=== PATIENT | male | born 1980 | race Caucasian/White ===

== ENCOUNTER 2017-03-21 21:34 | Emergency (ER) | payer BC ==
[2017-03-21] MEDS ORDERED: Amoxicillin PO (*) 500 MG CAP PO ONE (21:52)
--- NOTE | 2017-03-21 21:52 | UC ---
Throat Pain/Nasal Matias HPI - HPI Summary HPI Summary: Pt c/o left side lower jaw pain, sudden onset of nasal congestion and sinus pressure X 1 day that has since resolved, sore throat that occurs only in the morning and improves during the day. - History of Current Complaint Chief Complaint: UCGeneralIllness Stated Complaint: SINUS Time Seen by Provider: 03/21/17 21:39 Hx Obtained From: Patient Onset/Duration: Gradual Onset - left lower jaw pain Severity: Mild Associated Signs & Symptoms: Positive: Other - left lower jaw discomfort - Epiglottits Risk Factors Epiglottis Risk Factors: Negative - Allergies/Home Medications Allergies/Adverse Reactions: Allergies Allergy/AdvReac Type Severity Reaction Status Date / Time No Known Allergies Allergy Verified 03/21/17 21:38 Home Medications: Home Medications Ibuprofen TAB* [Advil TAB*] 800 mg PO Q8H PRN 03/21/17 [History Confirmed ] guaiFENesin ER TAB [Mucinex*] 600 mg PO BID PRN 03/21/17 [History Confirmed 04/27] PMH/Surg Hx/FS Hx/Imm Hx Previously Healthy: Yes - Surgical History Surgical History: None - Family History Known Family History: Positive: Cardiac Disease - Social History Occupation: Employed Part-time Lives: With Family Alcohol Use: None Substance Use Type: None Smoking Status (MU): Never Smoked Tobacco Have You Smoked in the Last Year: No - Immunization History Most Recent Influenza Vaccination: none Review of Systems Constitutional: Chills Skin: Negative Eyes: Negative ENT: Dental Pain, Sore Throat, Sinus Congestion Respiratory: Negative Cardiovascular: Negative Gastrointestinal: Negative Genitourinary: Negative Motor: Negative Neurovascular: Negative Musculoskeletal: Negative Neurological: Negative Psychological: Negative Is Patient Immunocompromised?: No All Other Systems Reviewed And Are Negative: Yes Physical Exam Triage Information Reviewed: Yes Appearance: Well-Appearing Vital Signs: Initial Vital Signs Temp 97.8 F 03/21/17 21:39 Pulse 78 03/21/17 21:39 Resp 12 03/21/17 21:39 BP 141/86 03/21/17 21:39 Pulse Ox 100 03/21/17 21:39 Vital Signs Reviewed: Yes Eye Exam: Normal ENT: Positive: Other: - PND Dental: Positive: Gross Decay/Caries @, Dental Fracture @ - left lower last two molars,, Abscess @ - left lower jaw last two molar, tenderness, along lower left jaw with examination Neck exam: Other Neck: Positive: Tenderness @ - left lower jaw, submandibular lymph node Respiratory Exam: Normal Cardiovascular Exam: Normal Musculoskeletal Exam: Normal Neurological Exam: Normal Psychological Exam: Normal Skin Exam: Normal Throat Pain/Nasal Course/Dx - Course Course Of Treatment: I discussed the need to follow up with a [facility] care provider regarding his fractured teeth and development of dental abscess. Pt verbalized understanding and agreed to plan of care. - Differential Dx/Diagnosis Differential Diagnosis/HQI/PQRI: URI Provider Diagnoses: dental abscess. Poor dentition Discharge - Discharge Plan Condition: Stable Disposition: HOME Prescriptions: Amoxicillin PO (*) [Amoxicillin 500 MG CAP*] 500 mg PO Q12H #20 cap Patient Education Materials: Dental Abscess (ED) Referrals: [facility] [Outside] No Primary Care Phys,NOPCP [Primary Care Provider] - Additional Instructions: Please follow up wit oru dental care provider as soon as possible.
[2017-03-21 21:57] VITALS: BP 141/86
== END 2017-03-21 21:58 | disposition home or self-care (01) ==
LOC: UCCORT 21:34
DX: K04.7 Periapical abscess without sinus (principal); K02.9 Dental caries, unspecified
CPT/HCPCS: 99212; A9270-GY; G0463

== ENCOUNTER 2017-07-23 12:21 | Emergency (ER) | payer BC ==
[2017-07-23 14:20] VITALS: BP 125/74
[2017-07-23] MEDS ORDERED: Tetracaine 0.5% OPTH.SOL 4 ML* 1 DROP BTL BOTH EYES ONE (14:47)
--- NOTE | 2017-07-23 14:47 | UC ---
Eye Complaint HPI - HPI Summary HPI Summary: 37 YO MALE WITH BILAT FB SENSATIONS R EYE >L EYE TEARING PHOTOPHOBIC HE HAD BEEN WORKING UNDER HIS TRUCK - History of Current Complaint Chief Complaint: UCEye Stated Complaint: EYE COMPLAINT Time Seen by Provider: 07/23/17 14:40 Hx Obtained From: Patient Onset/Duration: Sudden Onset, Lasting Days Timing: Constant Severity Initially: Moderate Severity Currently: Moderate Pain Intensity: 7 Pain Scale Used: 0-10 Numeric Character: Foreign Body Sensation Aggravating Factor(s): Light Alleviating Factor(s): Darkness Associated Signs And Symptoms: Positive: Drainage (Clear) Eyes: 1 - FB 2 - FB - Risk Factors Penetrating Injury Risk Factor: Negative Globe Rupture Risk Factors: Negative Acute Glaucoma Risk Factors: Negative Optic Artery Occlusion Risk Factors: Negative - Allergies/Home Medications Allergies/Adverse Reactions: Allergies Allergy/AdvReac Type Severity Reaction Status Date / Time No Known Allergies Allergy Verified 07/23/17 14:20 PMH/Surg Hx/FS Hx/Imm Hx Previously Healthy: Yes - Surgical History Surgical History: None - Family History Known Family History: Positive: Cardiac Disease, Hypertension - Social History Alcohol Use: None Substance Use Type: None Smoking Status (MU): Never Smoked Tobacco Have You Smoked in the Last Year: No - Immunization History Most Recent Influenza Vaccination: none Review of Systems Constitutional: Negative Skin: Negative Eyes: Photophobia ENT: Negative Respiratory: Negative Cardiovascular: Negative Gastrointestinal: Negative Genitourinary: Negative Motor: Negative Neurovascular: Negative Musculoskeletal: Negative Neurological: Negative Psychological: Negative Is Patient Immunocompromised?: No All Other Systems Reviewed And Are Negative: Yes Physical Exam Triage Information Reviewed: Yes Appearance: Well-Appearing, No Pain Distress, Well-Nourished Vital Signs: Initial Vital Signs Temp 97.7 F 07/23/17 14:16 Pulse 77 07/23/17 14:16 Resp 14 07/23/17 14:16 BP 125/74 07/23/17 14:16 Pulse Ox 100 07/23/17 14:16 Vital Signs Reviewed: Yes Eyes: Positive: Other: - BILAT CORNEAL FBs ENT: Positive: Hearing grossly normal, Nasal drainage Neck: Positive: Supple Respiratory: Positive: Lungs clear, Normal breath sounds, No respiratory distress, No accessory muscle use Cardiovascular: Positive: RRR, No Murmur Musculoskeletal: Positive: ROM Intact, No Edema Neurological: Positive: Alert Psychological Exam: Normal Skin Exam: Normal Procedures - Eye Procedure Alcaine Drops Administered: Yes - TETRACAINE DROPS 2 EACH EYE Eye FB Removal: removal w/ cotton swab - RIGHT AND LEFT EYE, other - LARGE RUST RING RIGHT EYE Eye Complaint Course/Dx - Differential Dx/Diagnosis Provider Diagnoses: CORNEAL FOREIGN BODIES REMOVED (RIGHT AND LEFT EYE) Discharge - Discharge Plan Condition: Stable Disposition: HOME Prescriptions: Polymyx/Trimethoprim OPTH* [Polytrim OPHTH*] 1 - 2 drop BOTH EYES QID #1 btl Patient Education Materials: Eye Foreign Body (ED) Referrals: Luis Fernando Gallo MD [Medical Doctor] - If Needed Ladi Dangelo MD [Medical Doctor] - If Needed Additional Instructions: you should be much better in 24 hours if not better return for recheck you have a large rust ring on your right cornea I suggest you see an entry specialist to have it removed
[2017-07-23] MEDS ORDERED: Tetracaine 0.5% OPTH.SOL 4 ML* 1 DROP BTL ONE (14:49)
== END 2017-07-23 15:09 | disposition home or self-care (01) ==
LOC: UCCORT 12:21
DX: T15.02XA Foreign body in cornea, left eye, initial encounter (principal); T15.01XA Foreign body in cornea, right eye, initial encounter; X58.XXXA Exposure to other specified factors, initial encounter; Y93.89 Activity, other specified; Y92.9 Unspecified place or not applicable
CPT/HCPCS: 65220; 99212; A9270-GY; G0463

== ENCOUNTER 2017-11-27 20:39 | Emergency (ER) | payer BC ==
[2017-11-27 21:45] VITALS: BP 116/72
[2017-11-27] MEDS ORDERED: Tetracaine 0.5% OPTH.SOL 4 ML* 1 DROP BTL LEFT EYE ONE (21:59)
[2017-11-27] MEDS ORDERED: Fluorescein Sod TOPICAL 0.6* 0.6 MG TEST OPHTHALMIC ONE ×2 (22:01→22:03)
--- NOTE | 2017-11-27 22:02 | UC ---
Eye Complaint HPI - HPI Summary HPI Summary: 37 y/o male presents to the urgent care c/o foreign body in his left eye s/p working on his truck last night. Pt thinks a metal piece felt on his left eye, he removed some of it by flushing his eye w/ water. Pt states he feels a foreign body sensation w/ burning sensation and red eye. He has been scratching his eye. Pt states mild photophobia w/ clear eye discharge. Pt denies fever, Adams , eye pain, dizziness, visual disturbances, SOB, chest pain, abdominal pain, N/V /D. - History of Current Complaint Chief Complaint: UCEye Stated Complaint: LEFT EYE COMPLAINT Time Seen by Provider: 11/27/17 21:49 Hx Obtained From: Patient Onset/Duration: Sudden Onset, Lasting Days - 1 days, Still Present Timing: Constant Severity Initially: Mild Severity Currently: Mild Pain Intensity: 2 Pain Scale Used: 0-10 Numeric Location of Injury: Other - left cornea Character: Foreign Body Sensation Aggravating Factor(s): Blinking Alleviating Factor(s): Nothing Associated Signs And Symptoms: Positive: Photophobia, Drainage (Clear). Negative: Drainage (Purulent), Vision Impairment Bilateral, Vision Impairment Right, Vision Impairment Left, Fever, Swelling - Risk Factors Penetrating Injury Risk Factor: Negative Globe Rupture Risk Factors: Negative Acute Glaucoma Risk Factors: Negative Optic Artery Occlusion Risk Factors: Negative - Allergies/Home Medications Allergies/Adverse Reactions: Allergies Allergy/AdvReac Type Severity Reaction Status Date / Time No Known Allergies Allergy Verified 07/23/17 14:20 Home Medications: Home Medications Ibuprofen TAB* [Advil TAB*] 800 mg PO Q6H PRN 11/27/17 [History Confirmed ] PMH/Surg Hx/FS Hx/Imm Hx Previously Healthy: Yes - Pt denies PMHX - Surgical History Surgical History: None - Family History Known Family History: Positive: Cardiac Disease, Hypertension, Diabetes - Social History Occupation: Employed Full-time Lives: With Family Alcohol Use: None Substance Use Type: None Smoking Status (MU): Never Smoked Tobacco Have You Smoked in the Last Year: No - Immunization History Most Recent Influenza Vaccination: none Most Recent Tetanus Shot: WITHIN PAST 2 YRS PER PT. Review of Systems Constitutional: Negative Skin: Negative Eyes: Eye Redness - left eye and clear discharge ENT: Negative Respiratory: Negative Cardiovascular: Negative Gastrointestinal: Negative Genitourinary: Negative Motor: Negative Neurovascular: Negative Musculoskeletal: Negative Neurological: Negative Psychological: Negative Is Patient Immunocompromised?: No All Other Systems Reviewed And Are Negative: Yes Physical Exam - Summary Physical Exam Summary: Vital Signs Reviewed: Yes General: Well appearing, well nourished male in no apparent pain distress Eyes: Positive: B/L Conjunctiva clear- Visual acuity: WNL,Visual staley: full to confrontation. No periorbital soft tissue swelling B/L.No tender to palpation. PERRLA, EOMI intact w/out limitation or complaint of pain. eyelashes clear. mild tearing and clear drainage observed. Black point observed embedded on the LF cornea around 7 o'clock w/ naked eye.No ciliary flush. No chemosis, No photophobia. Normal fundoscopic exam; no proptosis, exophthalmos, nystagmus. ENT: Positive: Normal ENT inspection, Hearing grossly normal, Pharynx normal, Nasal congestion, Nasal drainage - clear, TMs normal - B/L external ear canal clear , TM's WNL. Negative: Tonsillar swelling, Tonsillar exudate Neck: Positive: Supple, Nontender, No Lymphadenopathy Respiratory: Positive: Chest nontender, Lungs clear, Normal breath sounds, No respiratory distress Cardiovascular: Positive: RRR, No Murmur, Pulses Normal, Brisk Capillary Refill Abdomen Description: Positive: Nontender, No Organomegaly, Soft. Negative: CVA Tenderness (R), CVA Tenderness (L) Bowel Sounds: Positive: Present Musculoskeletal: Positive: Strength Intact, ROM Intact, No Edema Neurological Exam: Normal Psychological Exam: Normal Skin Exam: Normal Triage Information Reviewed: Yes Vital Signs: Initial Vital Signs Temp 98.4 F 11/27/17 21:41 Pulse 76 11/27/17 21:41 Resp 18 11/27/17 21:41 BP 116/72 11/27/17 21:41 Pulse Ox 99 11/27/17 21:41 Eye Complaint Course/Dx - Course Course Of Treatment: 37 y/o male presents to the urgent care c/o foreign body in his left eye s/p working on his truck last night. Pt thinks a metal piece felt on his left eye, he removed some of it by flushing his eye w/ water. Pt states he feels a foreign body sensation w/ burning sensation and red eye. He has been scratching his eye. Pt states mild photophobia w/ clear eye discharge. Pt denies fever, Adams, eye pain, dizziness, visual disturbances, SOB, chest pain , abdominal pain, N/V/D. Hx obtained. Pt w/ a black point observed embedded on the LF cornea around 7 o'clock w/ naked eye on examination. EYE PROCEDURE to remove foreign body:Topical anesthetic was instilled with good anesthesia using 1 gtt of Tettracaine ophth anesthetic agent. Fluorescein stain of the L eye was performed w uptake of dye. FB detected at 7 o'clock of cornea. FB removed w/ a sterile Q-tip and corneal abrassion observed. Upper lid was everted and no FB or lesions were noted. Anterior chamber is clear w/out cells or flare. Normal saline irrigation/eye wash solutions was performed and the pt tolerated the procedure well, no adverse reaction or complication. After procedure Pt felt better. Pt Rx Erythromycin ophthalmic ointment, first dose given at the clinic and advised to f/u w/ DR Dangelo belly dancer in 1-2 days for furtehr evaluation on his Corneal abrasion. Pt understood and agreed w/ plan of care - Differential Dx/Diagnosis Differential Diagnosis/HQI/PQRI: Conjunctivitis, Corneal Abrasion, Foreign Body , Periorbital Cellulitis Provider Diagnoses: 1- left eye foreign body removal. 2-left corneal abrasion Discharge - Sign-Out/Discharge Documenting (check all that apply): Discharge/Admit/Transfer - D/C home - Discharge Plan Condition: Stable Disposition: HOME Prescriptions: Erythromycin TOPICAL GEL* [Erythromycin OPTH OINT*] 1 applic TOPICAL TID #1 oint Patient Education Materials: Corneal Abrasion (DC), Eye Foreign Body (ED) Referrals: [facility] [[facility]] - If Needed Ladi Dangelo MD [Medical Doctor] - 2 Days Additional Instructions: 1-Please apply ophthalmic ointm as instructed and finish the full course of treatment to avoid recurrent infection. 2-Please f/u w/ Electronic Prepress System Operator DR Dangelo in 2 days for further check up and treatment on your corneal abrasion. - Billing Disposition and Condition Condition: STABLE Disposition: HOME
[2017-11-27] MEDS ORDERED: Erythromycin OPTH OINT* APPLIC OINT LEFT EYE ONE (22:13)
== END 2017-11-27 22:25 | disposition home or self-care (01) ==
LOC: UCCORT 20:39
DX: T15.02XA Foreign body in cornea, left eye, initial encounter (principal); S00.252A Superficial foreign body of left eyelid and periocular area, initial encounter; X58.XXXA Exposure to other specified factors, initial encounter; Y93.89 Activity, other specified; Y92.9 Unspecified place or not applicable
CPT/HCPCS: 99213; A9270-GY; G0463

== ENCOUNTER 2018-01-16 15:34 | Emergency (ER) | payer BC ==
[2018-01-16 15:56] VITALS: BP 123/75
--- NOTE | 2018-01-16 16:11 | UC ---
Throat Pain/Nasal Matias HPI - HPI Summary HPI Summary: itchy rash both axilla spreading down ribs mid axilla area, also has left upper dental pain and swelling - History of Current Complaint Chief Complaint: UCRespiratory Stated Complaint: SINUS Time Seen by Provider: 01/16/18 16:08 Hx Obtained From: Patient Onset/Duration: Gradual Onset, Lasting Weeks Pain Intensity: 7 Pain Scale Used: 0-10 Numeric Cough: None - Allergies/Home Medications Allergies/Adverse Reactions: Allergies Allergy/AdvReac Type Severity Reaction Status Date / Time No Known Allergies Allergy Verified 01/16/18 15:48 PMH/Surg Hx/FS Hx/Imm Hx Previously Healthy: Yes - Surgical History Surgical History: None - Family History Known Family History: Positive: None, Cardiac Disease, Hypertension, Diabetes - Social History Occupation: Employed Full-time Lives: With Family Alcohol Use: None Substance Use Type: None Smoking Status (MU): Never Smoked Tobacco Have You Smoked in the Last Year: No - Immunization History Most Recent Influenza Vaccination: none Most Recent Tetanus Shot: WITHIN PAST 2 YRS PER PT. Review of Systems Constitutional: Negative Skin: Rash - itchy dry rash both axilla and mid axillary area on chest wall Eyes: Negative ENT: Dental Pain - left upper, Sinus Pain/Tenderness - left maxillary Respiratory: Negative Cardiovascular: Negative Gastrointestinal: Negative Genitourinary: Negative Motor: Negative Neurovascular: Negative Musculoskeletal: Negative Neurological: Negative Psychological: Negative Is Patient Immunocompromised?: No All Other Systems Reviewed And Are Negative: Yes Physical Exam Triage Information Reviewed: Yes Appearance: Well-Appearing, No Pain Distress, Well-Nourished Vital Signs: Initial Vital Signs Temp 97.7 F 01/16/18 15:49 Pulse 59 01/16/18 15:49 Resp 16 01/16/18 15:49 BP 123/75 01/16/18 15:49 Pulse Ox 100 01/16/18 15:49 Vital Signs Reviewed: Yes Eye Exam: Normal Eyes: Positive: Conjunctiva Clear ENT Exam: Normal ENT: Positive: Normal ENT inspection, Hearing grossly normal, Pharynx normal, Nasal congestion, TMs normal, Dental tenderness, Sinus tenderness, Uvula midline. Negative: Tonsillar swelling, Trismus, Muffled voice, Hoarse voice Dental Exam: Other Dental: Positive: Percussion Tenderness @ - left upper, Gross Decay/Caries @ - left upper Neck exam: Normal Neck: Positive: Supple, Nontender, No Lymphadenopathy Respiratory Exam: Normal Respiratory: Positive: Chest non-tender, No respiratory distress, No accessory muscle use Cardiovascular Exam: Normal Cardiovascular: Positive: RRR, Pulses Normal, Brisk Capillary Refill Musculoskeletal Exam: Normal Musculoskeletal: Positive: Strength Intact, ROM Intact, No Edema Neurological Exam: Normal Neurological: Positive: Alert, Muscle Tone Normal Psychological Exam: Normal Skin Exam: Normal Throat Pain/Nasal Course/Dx - Course Assessment/Plan: lotrisone for fungal rash on chest wall, augmentin for dental infection tylenol ibuprofen for pain follow with pcp prn - Differential Dx/Diagnosis Provider Diagnoses: tinea rash on chest, dental pain/abscess-left upper jaw Discharge - Sign-Out/Discharge Documenting (check all that apply): Discharge/Admit/Transfer - Discharge Plan Condition: Stable Disposition: HOME Prescriptions: Amoxicillin/Clavulanate TAB* [Augmentin TAB 875*] 875 mg PO BID #20 tab Clotrimazole/Betamethasone* [Lotrisone Cream*] 1 applic TOPICAL BID #45 gm Patient Education Materials: Sinusitis (ED), Skin Yeast Infection (ED) Referrals: Chu Roland, LEAD ASSISTANT MANAGER [Primary Care Provider] - If Needed - Billing Disposition and Condition Condition: STABLE Disposition: Home
== END 2018-01-16 16:40 | disposition home or self-care (01) ==
LOC: UCCORT 15:34
DX: B35.9 Dermatophytosis, unspecified (principal); K08.89 Other specified disorders of teeth and supporting structures; M27.2 Inflammatory conditions of jaws
CPT/HCPCS: 99212; G0463

== ENCOUNTER 2018-07-06 17:17 | Emergency (ER) | payer BC ==
[2018-07-06 19:18] VITALS: BP 141/80
--- NOTE | 2018-07-06 19:32 | UC ---
Throat Pain/Nasal Matias HPI - HPI Summary HPI Summary: Patient presents to urgent care reporting 5 days progressive sinus congestion, ear pain, postnasal drip, sore throat. Patient reports tactile temperatures but has not checked his fever. Patient's been taking Mucinex without report. Patient states he's got some facial discomfort improvement a shower. Mild intermittent cough is nonproductive. Patient without any rashes. Patient works in construction. Patient's medications reviewed this visit. Patient is not immunocompromised. - History of Current Complaint Chief Complaint: UCGeneralIllness Stated Complaint: SINUSES Time Seen by Provider: 07/06/18 19:23 Hx Obtained From: Patient, Family/Backend Java Developer Onset/Duration: Gradual Onset Severity: Moderate Pain Intensity: 6 Pain Scale Used: 0-10 Numeric - Allergies/Home Medications Allergies/Adverse Reactions: Allergies Allergy/AdvReac Type Severity Reaction Status Date / Time No Known Allergies Allergy Verified 07/06/18 19:18 PMH/Surg Hx/FS Hx/Imm Hx Previously Healthy: Yes - Surgical History Surgical History: None - Family History Known Family History: Positive: None, Cardiac Disease, Hypertension, Diabetes - Social History Occupation: Employed Full-time - construction Lives: With Family Alcohol Use: Rare Substance Use Type: None Smoking Status (MU): Never Smoked Tobacco Have You Smoked in the Last Year: No - Immunization History Most Recent Influenza Vaccination: none Most Recent Tetanus Shot: WITHIN PAST 2 YRS PER PT. Review of Systems All Other Systems Reviewed And Are Negative: Yes Constitutional: Positive: Negative ENT: Positive: Nasal Discharge, Sinus Congestion, Sinus Pain/Tenderness Respiratory: Positive: Cough Cardiovascular: Positive: Negative Is Patient Immunocompromised?: Yes Physical Exam - Summary Physical Exam Summary: Vital Signs Reviewed: Yes A+Ox3, no distress Eyes: Conjunctiva Clear, DORENE. EOM intact and full ENT: Hearing grossly normal right ear + fluid, no erythema left TM wnl, turbinates inflammed and boggy + PND uvula midline, no exudate, no erythema Neck: Positive: Supple Respiratory: Positive: No respiratory distress, No accessory muscle use + CTA throughout no w/r Cardiovascular: RRR nl s1, s2 no m/r CBT <2 sec abd soft + BS nt/nd no guarding, no distension Musculoskeletal Exam: CAICEDO x 4 without difficulty Strength Intact, ROM Intact Neurological: Positive: Alert, + sensation throughout Psychological: Positive: Normal Response To Family Skin: Positive: no rash, no ecchymosis Triage Information Reviewed: Yes Vital Signs: Initial Vital Signs Temp 98.7 F 07/06/18 19:15 Pulse 90 07/06/18 19:15 Resp 15 07/06/18 19:15 BP 141/80 07/06/18 19:15 Pulse Ox 100 07/06/18 19:15 Throat Pain/Nasal Course/Dx - Course Assessment/Plan: Patient presents to urgent care with 5 days progressive sinus congestion. Patient with fluid in his left ear turbinates inflamed and boggy exam consistent with rhinosinusitis. VSS. Will Rx flonase, Amox. hydrate. secretion precaution. humidify. return precaution. Pt with elevated BP - decongestant precautions - f/u with pcp - Differential Dx/Diagnosis Provider Diagnosis: Rhinosinusitis Discharge - Sign-Out/Discharge Documenting (check all that apply): Patient Departure All imaging exams completed and their final reports reviewed: No Studies - Discharge Plan Condition: Stable Disposition: HOME Prescriptions: Amoxicillin PO (*) [Amoxicillin 875 MG (*)] 875 mg PO BID #20 tab Fluticasone NASAL SPRAY 50MCG* [Flonase NASAL SPRAY 50MCG*] 2 spray BOTH NARES DAILY #1 btl Patient Education Materials: Rhinosinusitis (ED) Referrals: Chu Roland, HANDLE ATTACHER [Primary Care Provider] - Additional Instructions: - Stay well hydrated. Drink plenty of non-alcoholic, non-caffinated beverages. - Alternate ibuprofen (Advil, Motrin) 600mg and Tylenol every 3 hours for pain or fever. Take with food. Do NOT take for more than 4-5 days. - These infections are spread by secretions - do NOT share eating or drinking utensils - clean items you share with other people such as cell phones, computer mouse, TV remote, computer tablets,etc. Once you have been antibiotics for 2 days, change your toothbrush and your pillowcase. - get plenty of restful sleep - humidify the air in the room where you sleep - boil water, run a hot steam shower, vaporizer, cups of water by heat register - okay to take over the counter decongestant and cough medication - use nasal spray as prescribed - contact your doctor or return with questions or concerns - Billing Disposition and Condition Condition: STABLE Disposition: Home
== END 2018-07-06 19:47 | disposition home or self-care (01) ==
LOC: UCCORT 17:17
DX: J32.9 Chronic sinusitis, unspecified (principal)
CPT/HCPCS: 99212; G0463

== ENCOUNTER 2018-09-20 20:47 | Emergency (ER) | payer BC ==
[2018-09-20 21:10] VITALS: BP 136/83
[2018-09-20] MEDS ORDERED: Amoxicillin/Clavulanate TAB* 875 MG PO ONE (21:35)
[2018-09-20] MEDS ORDERED: Azithromycin TAB* 250 MG PO ONE (21:35)
[2018-09-20] MEDS ORDERED: Benzonatate CAP* 100 MG PO ONE (21:36)
[2018-09-20] MEDS ORDERED: Albuterol HFA INHALER* 8 gm MDI INH ONE (21:39)
--- NOTE | 2018-09-20 21:46 | UC ---
Respiratory Complaint HPI - HPI Summary HPI Summary: 38-year-old male comes in with a chief complaint of weakness half of upper respiratory tract infection symptoms. He's had a runny nose rhinorrhea is yellow and green. Now he feels like it is going into his chest is getting a cough chest congestion and some wheezing. No recent fevers. Elta-[id number]-tyyvxpr medicines helped some with the symptoms. - History of Current Complaint Chief Complaint: UCRespiratory Stated Complaint: COUGH, CHEST CONGESTION Time Seen by Provider: 09/20/18 21:10 Pain Intensity: 4 - Allergies/Home Medications Allergies/Adverse Reactions: Allergies Allergy/AdvReac Type Severity Reaction Status Date / Time No Known Allergies Allergy Verified 09/20/18 21:06 Home Medications: Home Medications Ibuprofen TAB* [Motrin TAB* 800 MG] 800 mg PO DAILY PRN 09/20/18 [History Confirmed 09/20/18] Phenylephrine/Dm/Acetaminop/GG [Mucinex Fast-Max Severe C [id number] mg] 2 tab PO Q6H PRN 09/20/18 [History Confirmed 09/20/18] PMH/Surg Hx/FS Hx/Imm Hx Previously Healthy: Yes - Surgical History Surgical History: None - Family History Known Family History: Positive: None, Cardiac Disease, Hypertension, Diabetes - Social History Alcohol Use: None Substance Use Type: None Smoking Status (MU): Former Smoker Have You Smoked in the Last Year: No - Immunization History Most Recent Influenza Vaccination: none Most Recent Tetanus Shot: WITHIN PAST 2 YRS PER PT. Review of Systems All Other Systems Reviewed And Are Negative: Yes Constitutional: Positive: Negative Skin: Positive: Negative Eyes: Positive: Negative ENT: Positive: Sore Throat, Nasal Discharge, Sinus Congestion, Sinus Pain/ Tenderness Respiratory: Positive: Cough, Other - SEE HPI Cardiovascular: Positive: Negative Gastrointestinal: Positive: Negative Motor: Positive: Negative Neurovascular: Positive: Negative Musculoskeletal: Positive: Negative Neurological: Positive: Negative Psychological: Positive: Negative Is Patient Immunocompromised?: No Physical Exam Triage Information Reviewed: Yes Appearance: No Pain Distress, Well-Nourished, Ill-Appearing - MILD Vital Signs: Initial Vital Signs Temp 98.1 F 09/20/18 20:59 Pulse 90 09/20/18 20:59 Resp 18 09/20/18 20:59 BP 136/83 09/20/18 20:59 Pulse Ox 100 09/20/18 20:59 Vital Signs Reviewed: Yes Eye Exam: Normal Eyes: Positive: Conjunctiva Clear ENT: Positive: Pharyngeal erythema, Nasal congestion, Nasal drainage, TMs normal Neck exam: Normal Neck: Positive: Supple Respiratory: Positive: Lungs clear, Normal breath sounds, No respiratory distress Cardiovascular: Positive: RRR Musculoskeletal Exam: Normal Musculoskeletal: Positive: Strength Intact, ROM Intact Neurological Exam: Normal Neurological: Positive: Alert, Muscle Tone Normal Psychological Exam: Normal Psychological: Positive: Normal Response To Family, Age Appropriate Behavior Skin Exam: Normal Respiratory Course/Dx - Course Course Of Treatment: Patient's has had similar symptoms. She's been on Augmentin which is helping with her sinuses however her chest can just and symptoms are getting worse and the patient is concerned he is having the same illness and his concern over the possibility of bronchitis and pneumonia. That is why were treating with both Augmentin and azithromycin. Also using albuterol and Tessalon Perles and [id number] medications as needed. Follow-up primary care doctor reevaluation sooner if worse or any other questions or concerns. - Differential Dx/Diagnosis Provider Diagnosis: Sinusitis, Bronchitis with bronchospasm Discharge - Sign-Out/Discharge Documenting (check all that apply): Patient Departure All imaging exams completed and their final reports reviewed: No Studies - Discharge Plan Condition: Stable Disposition: HOME Prescriptions: Amoxicillin/Clavulanate TAB* [Augmentin TAB 875*] 875 mg PO BID #19 tab Azithromycin 250 mg PO DAILY #4 tablet Benzonatate CAP* [Tessalon 100 MG CAP*] 100 mg PO TID PRN #20 cap PRN Reason: Cough Patient Education Materials: Sinusitis (ED), Acute Bronchitis (ED), Bronchospasm (ED) Referrals: Chu Roladn, [facility] [facility] [Primary Care Provider] - Additional Instructions: FOLLOW UP WITH YOUR DOCTOR IF NOT COMPLETELY IMPROVED. GET RECHECKED FOR ANY WORSENING OF YOUR CONDITION OR QUESTIONS OR CONCERNS. - Billing Disposition and Condition Condition: STABLE Disposition: Home
== END 2018-09-20 22:07 | disposition home or self-care (01) ==
LOC: UCCORT 20:47
DX: J32.9 Chronic sinusitis, unspecified (principal); J40 Bronchitis, not specified as acute or chronic; J98.01 Acute bronchospasm; Z87.891 Personal history of nicotine dependence
CPT/HCPCS: 99213; A9270-GY; G0463

== ENCOUNTER 2019-08-30 20:00 | Emergency (ER) | payer BC ==
[2019-08-30 20:52] VITALS: BP 129/78
--- NOTE | 2019-08-30 21:13 | UC ---
Throat Pain/Nasal Matias HPI - HPI Summary HPI Summary: 39 yo, usually well, with one week history of sinus congestion and left facial pain. he uses daily ibuprofen for low back pain. Concerned because of having a hx of seizure 2 years ago which he associates with being ill with a respiratory illness. Negative work up at that time and he has never taken an anti-seizure medication. - History of Current Complaint Chief Complaint: UCHeadache Stated Complaint: SINUS CONCERN Time Seen by Provider: 08/30/19 21:03 Hx Obtained From: Patient Onset/Duration: Gradual Onset Severity: Moderate Pain Intensity: 0 Cough: None Associated Signs & Symptoms: Positive: Sinus Discomfort, Nasal Discharge. Negative: Dysphagia, Fever - Epiglottits Risk Factors Epiglottis Risk Factors: Negative - Allergies/Home Medications Allergies/Adverse Reactions: Allergies Allergy/AdvReac Type Severity Reaction Status Date / Time No Known Allergies Allergy Verified 08/30/19 20:49 Home Medications: Home Medications Ibuprofen TAB* [Motrin TAB* 600 MG] 600 mg PO Q6H PRN 08/30/19 [History Confirmed 08/30/19] guaiFENesin ER TAB [Mucinex*] 600 mg PO BID 08/30/19 [History Confirmed 08/30/19 ] PMH/Surg Hx/FS Hx/Imm Hx Previously Healthy: Yes - Surgical History Surgical History: None - Family History Known Family History: Positive: None, Cardiac Disease, Hypertension, Diabetes - Social History Occupation: Employed Full-time Lives: With Family Alcohol Use: None Substance Use Type: None Smoking Status (MU): Former Smoker Have You Smoked in the Last Year: No - Immunization History Most Recent Influenza Vaccination: none Most Recent Tetanus Shot: WITHIN PAST 2 YRS PER PT. Review of Systems All Other Systems Reviewed And Are Negative: Yes Constitutional: Positive: Fatigue - chronic fatigue since he had his seizure 2 years ago. Skin: Positive: Negative Eyes: Positive: Negative ENT: Positive: Sore Throat, Ear Ache, Sinus Congestion, Sinus Pain/Tenderness Respiratory: Positive: Negative Cardiovascular: Positive: Negative Gastrointestinal: Positive: Negative Genitourinary: Positive: Negative Motor: Positive: Decreased ROM - in lumbar spine. Musculoskeletal: Positive: Arthralgia - onset of back pain x 2 months ago without a specific injury. Works construction. Neurological/Mental Status: Positive: Headache Psychological: Positive: Negative Is Patient Immunocompromised?: No Physical Exam Triage Information Reviewed: Yes Appearance: Well-Appearing, No Pain Distress Vital Signs: Initial Vital Signs Temp 98.2 F 08/30/19 20:49 Pulse 82 08/30/19 20:49 Resp 14 08/30/19 20:49 BP 129/78 08/30/19 20:49 Pulse Ox 98 08/30/19 20:49 ENT: Positive: Pharynx normal, TMs normal, Sinus tenderness. Negative: Tonsillar swelling Neck: Positive: Supple, Nontender, No Lymphadenopathy Respiratory: Positive: Lungs clear, Normal breath sounds Cardiovascular: Positive: RRR, No Murmur Abdomen Description: Positive: Nontender, No Organomegaly, Soft Musculoskeletal Exam: Other - flat lordotic curve. Musculoskeletal: Positive: ROM Limited @ - lumbar spine, Other: - + SLR on the right at 80 degrees. Neurological Exam: Normal Neurological: Positive: Alert, Muscle Tone Normal Psychological Exam: Normal Skin Exam: Normal Throat Pain/Nasal Course/Dx - Course Course Of Treatment: Augmentin for treatment of sinusitis. Advised reporting work injury if lifting at work is thought to be the cause of back pain. - Differential Dx/Diagnosis Differential Diagnosis/HQI/PQRI: Sinusitis, URI Provider Diagnosis: Sinusitis Discharge ED - Sign-Out/Discharge Documenting (check all that apply): Patient Departure All imaging exams completed and their final reports reviewed: No Studies - Discharge Plan Condition: Stable Disposition: HOME Patient Education Materials: Sinusitis (ED), Low Back Strain (ED), Lower Back Exercises (ED) Referrals: Chu Roland, [employer] [Primary Care Provider] - Additional Instructions: Begin augmentin for treatment of sinus infection. You might use flonase (fluticasone) spray 2 sprays to both nostrils once daily to relieve sinus pressure. This is available over the counter. You can try some back exercises for relief of pain. If the work environment is the likely cause of your back pain, it is advisable to report a work injury and proceed form there according to the policies of your company. - Billing Disposition and Condition Condition: STABLE Disposition: Home
[2019-08-30] MEDS ORDERED: Amoxicillin/Clavulanate TAB* 875 MG PO ONE (21:23)
== END 2019-08-30 21:39 | disposition home or self-care (01) ==
LOC: UCCORT 20:00
DX: J32.9 Chronic sinusitis, unspecified (principal); R53.83 Other fatigue; J02.9 Acute pharyngitis, unspecified; Z87.891 Personal history of nicotine dependence
CPT/HCPCS: 99212; A9270-GY; G0463